=== PATIENT | male | born 1975 | race Caucasian/White ===

== ENCOUNTER 2019-03-12 11:25 | Inpatient (IN) | payer OTHER ==
[~2019-03-12] VITALS: Ht 177.8 cm; Wt 118.0 kg
[2019-03-12] VITALS (8 sets, daily range): BP systolic 101–138; BP diastolic 59–85
--- NOTE | ~2019-03-12 | EKG ---
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
--- NOTE | ~2019-03-12 | EKG ---
[place], [place] ELECTROCARDIOGRAM REPORT NAME: LEXI VALLADARES UNIT #: [id number] ROOM: 508 DOCTOR: IVELISSE DRAFT REPORT BIRTHDATE: [birth year] 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
--- NOTE | ~2019-03-12 | EKG ---
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
--- NOTE | ~2019-03-12 | EKG ---
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
[~2019-03-12 11:25] MED LIST: CIPROFLOXACIN500 MG PO; COMPAZINE10 MG PO; FLAGYL500 MG PO; MOTRIN800 MG PO; ZANTAC150 MG PO
[2019-03-12 12:10] LABS: BASO # 0.1 10*3/uL (0.0-0.1); BASO % 1.2 % (0.0-1.0); EOS # 0.2 10*3/uL (0.0-0.4); EOS % 1.7 % (1.0-4.0); HEMATOCRIT 45.8 % (42.0-52.0); HEMOGLOBIN 16.3 g/dl (14.0-18.0); LYMPH % 19.2 % (27.0-41.0); MEAN CELL VOLUME 93.1 fl (80.0-94.0); MEAN CORPUSCULAR HGB 33.1 pg (27.0-31.0); MEAN CORPUSCULAR HGB CONC 35.6 g/dl (33.0-37.0); MEAN PLATELET VOLUME 10.1 fl (9.6-12.3); MONO # 0.5 10*3/uL (0.1-1.0); MONO % 4.9 % (3.0-9.0); NEUT # 7.4 10*3/uL (2.3-7.9); NEUT % 72.3 % (47.0-73.0); PLATELET COUNT AUTOMATED 274 10*3/uL (130-400); RED BLOOD COUNT 4.92 10*6/uL (4.50-5.90); RED CELL DISTRI WIDTH 12.7 % (0-14.5); WHITE BLOOD COUNT 10.2 10*3/uL (4.8-10.8)
[2019-03-12 12:28] LABS: ALBUMIN 3.6 gm/dl (3.1-4.5); ALKALINE PHOSPHATASE 96 U/L (45-117); BUN 7 mg/dl (7-24); CHLORIDE 107 mmol/L (98-107); CREATININE 0.98 mg/dL (0.70-1.30); POTASSIUM 3.7 mmol/L (3.5-5.1); SGOT/AST 30 IU/L (3-35); SGPT/ALT 54 U/L (12-78); SODIUM 139 mmol/L (136-145); TOTAL PROTEIN 7.1 gm/dL (6.4-8.2)
[2019-03-12 12:29] LABS: TROPONIN I < 0.015 ng/ml (<0.045)
[2019-03-12 12:31] LABS: INTERNATIONAL NORM RATIO 0.9 (2.0-3.5)
[2019-03-12] MEDS ORDERED: LISINOPRIL30 MG PO (12:32)
[2019-03-12] MEDS ORDERED: CYMBALTA60 MG PO (12:33)
--- NOTE | 2019-03-12 13:20 | NUR ---
A 44, admitted to , under the services of RUTH Waddell DO with a diagnosis of CHEST PAIN. Chief complaint is CHEST PAIN. Patient arrived via stretcher from ER. Monitor applied. Initial assessment completed. Vital signs taken and recorded. RUTH WADDELL DO notified of admission to the unit. Orders received. See assessment for past medical history, medications and allergies. Patient and/or family oriented to unit. [facility] visitation policy reviewed. Clothing/patient valuable form completed. RASHEED MIRANDA
--- NOTE | 2019-03-12 14:18 | NUR ---
dr shepard office notified of consult
--- NOTE | 2019-03-12 19:04 | NUR ---
CONTINED ELEVATED TRO LEVEL SENT TO DR MYLES
--- NOTE | 2019-03-12 20:00 | NUR ---
RESTING IN BED. DENIES PAIN OR DISCOMFORT AT THIS TIME. WILL CONTINUE TO MONITOR. CALL LIGHT WITHIN REACH.
[2019-03-13] VITALS: BP 130/88
--- NOTE | 2019-03-13 | NUR ---
VOICES NO C/O AT THIS TIME. REINFORCED NPO STATUS AT THIS TIME. CALL LIGHT WITHIN REACH.
--- NOTE | 2019-03-13 05:30 | NUR ---
AROUSES EASILY FOR MEDICATION. ALSO DID ORTHOSTATICS AT THIS TIME; SEE VITAL SIGNS. PT. IS NOT SYMPTOMATIC. DOES NOT C/O ANY DIZZINESS NOR CHEST PAIN AT THIS TIME. CALL LIGHT WITHIN REACH.
--- NOTE | 2019-03-13 06:00 | NUR ---
GETTING BATHED FOR STRESS TEST.
--- NOTE | 2019-03-13 06:30 | NUR ---
CALLED DR. MANZANO WITH PT'S BLOOD PRESSURE. PT'S HOME MEDICATIONS HAVE NOT BEEN REORDERED. DR. MANZANO IS GOING TO REVIEW PT'S HOME MEDICATIONS.
[2019-03-13 06:56] LABS: BASO # 0.2 10*3/uL (0.0-0.1); BASO % 1.7 % (0.0-1.0); EOS # 0.3 10*3/uL (0.0-0.4); EOS % 3.8 % (1.0-4.0); HEMATOCRIT 47.1 % (42.0-52.0); HEMOGLOBIN 15.9 g/dl (14.0-18.0); LYMPH # 2.3 10*3/uL (1.3-4.4); LYMPH % 25.4 % (27.0-41.0); MEAN CORPUSCULAR HGB 32.1 pg (27.0-31.0); MEAN CORPUSCULAR HGB CONC 33.8 g/dl (33.0-37.0); MEAN PLATELET VOLUME 10.2 fl (9.6-12.3); MONO # 0.7 10*3/uL (0.1-1.0); MONO % 7.4 % (3.0-9.0); NEUT # 5.5 10*3/uL (2.3-7.9); PLATELET COUNT AUTOMATED 286 10*3/uL (130-400); RED BLOOD COUNT 4.96 10*6/uL (4.50-5.90); RED CELL DISTRI WIDTH 12.6 % (0-14.5)
[2019-03-13 07:31] LABS: BUN 10 mg/dl (7-24)
[2019-03-13 07:51] LABS: VITAMIN D, 25-HYDROXY 13.4 ng/mL (30-100)
[2019-03-13 07:56] LABS: ALBUMIN 3.7 gm/dl (3.1-4.5); ALKALINE PHOSPHATASE 99 U/L (45-117); CHLORIDE 103 mmol/L (98-107); CREATININE 0.95 mg/dL (0.70-1.30); PHOSPHOROUS 3.3 mg/dL (2.5-4.9); POTASSIUM 3.3 mmol/L (3.5-5.1); SGOT/AST 24 IU/L (3-35); SGPT/ALT 52 U/L (12-78); SODIUM 138 mmol/L (136-145); TOTAL PROTEIN 7.4 gm/dL (6.4-8.2); TRIGLYCERIDES 325 mg/dl (<150); VLDL CHOLESTEROL 65 mg/dL (6-40)
[2019-03-13 07:57] LABS: CHOLESTEROL 197 mg/dL (<200); FREE T4 0.75 ng/dl (0.76-1.46); HDL CHOLESTEROL 28 mg/dl (40-60); LDL CHOLESTEROL 104 mg/dL (9-159)
--- NOTE | 2019-03-13 11:11 | NUR ---
Clinic Office Coordinator in to talk to patient. Patient states lives at HOME with AND KIDS. There are FEW steps in the home. Physician: CAITIE [facility] Home health services: NONE Patient's level of ADLs: INDEPENDENT Patient has working utilities: YES DME: NONE Follow-up physician's appointment after d/c: WILL BE MADE BY HOSPITALIST NURSE DIRECTOR ON DISCHARGE. Does patient want to access PORTAL?: NO Discharge plan PT PLANS TO RETURN HOME ON DISCHARGE AND WILL HAVE NO NEEDS.. WILL CONTINUE TO FOLLOW. WILL HAVE A RIDE HOME PER PT. BRITTANY MENG
[2019-03-13 11:56] VITALS: BP 139/95
--- NOTE | 2019-03-13 13:17 | NUR ---
PT RESTING IN BED, THIS AM, DR. MORSE REQUESTED TRANSFER TO [facility] FOR HEART CATH. PT AGREED AND SIGNED ALL PAPER WORK.
--- NOTE | 2019-03-13 13:21 | NUR ---
EMT YIFANAR HERE TO MUTUEL TELLER PT WITH ALL BELONGINGS AND PAPERWORK GIVEN. REPORT GIVEN TO EMT'S . PT AT SIDE WILL FOLLOW AMBULANCE UP.
--- NOTE | 2019-03-13 13:35 | NUR ---
PT OFF UNIT AT THIS TIME.
== END 2019-03-13 13:30 | disposition other institution (70) | DRG 282 ==
LOC: ED 11:25 → EDHOLD 12:35 → 5E 12:35
PROVIDERS: Nurse Practitioner Family; Student in an Organized Health Care Education/Training Program; ADMIT Internal Medicine
DX: I21.4 Non-ST elevation (NSTEMI) myocardial infarction (principal); R55 Syncope and collapse; I20.8 Other forms of angina pectoris; I44.7 Left bundle-branch block, unspecified; Z90.49 Acquired absence of other specified parts of digestive tract; R73.9 Hyperglycemia, unspecified; K52.9 Noninfective gastroenteritis and colitis, unspecified; F41.9 Anxiety disorder, unspecified; F32.9 Major depressive disorder, single episode, unspecified; I10 Essential (primary) hypertension; K59.09 Other constipation; Z79.899 Other long term (current) drug therapy; Z82.49 Family history of ischemic heart disease and other diseases of the circulatory system

== ENCOUNTER 2019-07-19 15:33 | Emergency (ER) | payer OTHER ==
[~2019-07-19] VITALS: Ht 177.8 cm; Wt 117.9 kg
--- NOTE | ~2019-07-19 | EKG ---
[place], [place] ELECTROCARDIOGRAM REPORT NAME: LEXI VALLADARES UNIT #: [id number] ROOM: DOCTOR: EPIPHANY DRAFT REPORT BIRTHDATE: [address] 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
[~2019-07-19 15:33] MED LIST changes: +CYMBALTA60 MG PO; +LISINOPRIL30 MG PO
[2019-07-19 16:42] LABS: BASO # 0.1 10*3/uL (0.0-0.1); BASO % 1.1 % (0.0-1.0); EOS # 0.1 10*3/uL (0.0-0.4); EOS % 0.7 % (1.0-4.0); HEMATOCRIT 41.7 % (42.0-52.0); LYMPH # 1.6 10*3/uL (1.3-4.4); LYMPH % 16.9 % (27.0-41.0); MEAN CELL VOLUME 93.7 fl (80.0-94.0); MEAN CORPUSCULAR HGB 33.7 pg (27.0-31.0); MEAN PLATELET VOLUME 10.5 fl (9.6-12.3); MONO # 0.7 10*3/uL (0.1-1.0); MONO % 7.2 % (3.0-9.0); NEUT # 6.9 10*3/uL (2.3-7.9); NEUT % 73.4 % (47.0-73.0); PLATELET COUNT AUTOMATED 278 10*3/uL (130-400); RED BLOOD COUNT 4.45 10*6/uL (4.50-5.90); RED CELL DISTRI WIDTH 12.4 % (0-14.5); WHITE BLOOD COUNT 9.4 10*3/uL (4.8-10.8)
[2019-07-19 16:53] LABS: BUN 10 mg/dl (7-24); CHLORIDE 105 mmol/L (98-107); CREATININE 0.83 mg/dL (0.70-1.30); POTASSIUM 4.2 mmol/L (3.5-5.1); SODIUM 138 mmol/L (136-145)
[2019-07-19 18:41] VITALS: BP 150/106
[2019-07-19] MEDS ORDERED: AUGMENTIN 875875 MG PO (18:52)
== END 2019-07-19 19:15 | disposition home or self-care (01) ==
LOC: ED 15:33
PROVIDERS: Nurse Practitioner
DX: J32.1 Chronic frontal sinusitis (principal); R05 Cough; Z79.899 Other long term (current) drug therapy

== ENCOUNTER 2019-07-24 13:53 | Emergency (ER) | payer OTHER ==
[~2019-07-24] VITALS: Ht 180.3 cm; Wt 116.6 kg
[~2019-07-24 13:53] MED LIST changes: +AUGMENTIN 875875 MG PO
[2019-07-24 14:32] LABS: BASO # 0.1 10*3/uL (0.0-0.1); BASO % 1.1 % (0.0-1.0); EOS # 0.1 10*3/uL (0.0-0.4); EOS % 0.6 % (1.0-4.0); HEMATOCRIT 45.4 % (42.0-52.0); HEMOGLOBIN 16.2 g/dl (14.0-18.0); LYMPH # 1.7 10*3/uL (1.3-4.4); LYMPH % 17.2 % (27.0-41.0); MEAN CELL VOLUME 91.9 fl (80.0-94.0); MEAN CORPUSCULAR HGB 32.8 pg (27.0-31.0); MEAN CORPUSCULAR HGB CONC 35.7 g/dl (33.0-37.0); MONO # 0.7 10*3/uL (0.1-1.0); MONO % 6.7 % (3.0-9.0); NEUT # 7.2 10*3/uL (2.3-7.9); NEUT % 73.9 % (47.0-73.0); PLATELET COUNT AUTOMATED 350 10*3/uL (130-400); RED BLOOD COUNT 4.94 10*6/uL (4.50-5.90); RED CELL DISTRI WIDTH 12.3 % (0-14.5); WHITE BLOOD COUNT 9.8 10*3/uL (4.8-10.8)
[2019-07-24 14:46] LABS: ALBUMIN 4.1 gm/dl (3.1-4.5); ALKALINE PHOSPHATASE 101 U/L (45-117); BUN 9 mg/dl (7-24); CHLORIDE 104 mmol/L (98-107); CREATININE 0.89 mg/dL (0.70-1.30); POTASSIUM 4.1 mmol/L (3.5-5.1); SGOT/AST 72 IU/L (3-35); SGPT/ALT 79 U/L (12-78); SODIUM 135 mmol/L (136-145); TOTAL PROTEIN 8.1 gm/dL (6.4-8.2)
[2019-07-24 14:48] LABS: ETHYL ALCOHOL < 3.0 mg/dl (<3)
[2019-07-24 16:15] LABS: URINE AMPHETAMINES < 1000 (1000ng/ml); URINE BARBITURATES < 200 (200ng/ml); URINE BENZODIAZEPINES < 200 (200ng/ml); URINE CANNABINOIDS (THC) < 50 (50ng/ml); URINE COCAINE < 300 (300ng/ml); URINE METHADONE < 300 (300ng/ml); URINE OPIATES < 300 (300ng/ml); URINE PHENCYCLIDINE < 25 (25ng/ml)
[2019-07-24 20:46] VITALS: BP 174/101
== END 2019-07-24 22:40 | disposition home health service (06) ==
LOC: ED 13:53
PROVIDERS: Emergency Medicine
DX: F33.9 Major depressive disorder, recurrent, unspecified (principal); F41.9 Anxiety disorder, unspecified; I10 Essential (primary) hypertension; Z79.899 Other long term (current) drug therapy; Z90.49 Acquired absence of other specified parts of digestive tract

== ENCOUNTER 2019-10-22 10:22 | Emergency (ER) | payer OTHER ==
[~2019-10-22] VITALS: Ht 177.8 cm; Wt 118.4 kg
[2019-10-22 10:23] VITALS: BP 157/80
[2019-10-22] MEDS ORDERED: CARAFATE1 G1 PO (10:36)
[2019-10-22] MEDS ORDERED: OLANZAPINE10 MG PO (10:36)
[2019-10-22] MEDS ORDERED: NEURONTIN300 MG PO (10:37)
[2019-10-22] MEDS ORDERED: SIMVASTATIN10 MG PO (10:37)
[2019-10-22] MEDS ORDERED: HYDROXYZINE PAM50 MG PO (10:38)
[2019-10-22 10:45] LABS: BASO # 0.1 10*3/uL (0.0-0.1); BASO % 0.9 % (0.0-1.0); EOS # 0.1 10*3/uL (0.0-0.4); EOS % 0.7 % (1.0-4.0); HEMATOCRIT 46.1 % (42.0-52.0); LYMPH # 1.6 10*3/uL (1.3-4.4); LYMPH % 16.2 % (27.0-41.0); MEAN CELL VOLUME 92.8 fl (80.0-94.0); MEAN CORPUSCULAR HGB 32.2 pg (27.0-31.0); MEAN CORPUSCULAR HGB CONC 34.7 g/dl (33.0-37.0); MEAN PLATELET VOLUME 9.6 fl (9.6-12.3); MONO # 0.5 10*3/uL (0.1-1.0); MONO % 5.1 % (3.0-9.0); NEUT # 7.3 10*3/uL (2.3-7.9); NEUT % 76.4 % (47.0-73.0); PLATELET COUNT AUTOMATED 291 10*3/uL (130-400); RED BLOOD COUNT 4.97 10*6/uL (4.50-5.90); RED CELL DISTRI WIDTH 12.4 % (0-14.5); WHITE BLOOD COUNT 9.6 10*3/uL (4.8-10.8)
[2019-10-22 11:02] LABS: ALBUMIN 3.9 gm/dl (3.1-4.5); ALKALINE PHOSPHATASE 85 U/L (45-117); BUN 11 mg/dl (7-24); CHLORIDE 107 mmol/L (98-107); CREATININE 0.98 mg/dL (0.70-1.30); SGOT/AST 31 IU/L (3-35); SODIUM 140 mmol/L (136-145); TOTAL PROTEIN 7.4 gm/dL (6.4-8.2)
[2019-10-22 11:04] LABS: ACETAMINOPHEN (TYLENOL) < 5.0 ug/ml (10-30); ETHYL ALCOHOL < 3.0 mg/dl (<3); SGPT/ALT 69 U/L (12-78)
[2019-10-22 12:34] LABS: BILIRUBIN NEGATIVE (NEGATIVE); BLOOD NEGATIVE (NEGATIVE); CLARITY SL CLOUDY (CLEAR); COLOR YELLOW (YELLOW); GLUCOSE NEGATIVE (NEGATIVE); KETONE NEGATIVE (NEGATIVE); LEUKO ESTERASE NEGATIVE (NEGATIVE); NITRITE NEGATIVE (NEGATIVE); SPECIFIC GRAVITY <= 1.005 (1.005-1.030); UROBILINOGEN 0.2 E.U./dl (0.2-1.0)
[2019-10-22 12:42] LABS: URINE AMPHETAMINES < 1000 (1000ng/ml); URINE BARBITURATES < 200 (200ng/ml); URINE BENZODIAZEPINES < 200 (200ng/ml); URINE CANNABINOIDS (THC) < 50 (50ng/ml); URINE COCAINE < 300 (300ng/ml); URINE METHADONE < 300 (300ng/ml); URINE OPIATES < 300 (300ng/ml); URINE PHENCYCLIDINE < 25 (25ng/ml)
[2019-10-22 12:47] LABS: MUCOUS TRACE; RBC 0-2 rbc/hpf (0-2)
[2019-11-05] MEDS ORDERED: OMEPRAZOLE40 MG PO (17:48)
[2019-11-05] MEDS ORDERED: HYDROCHLOROTH12.5 M3 PO (17:48)
== END 2019-10-22 16:09 | disposition home or self-care (01) ==
LOC: ED 10:22
PROVIDERS: Emergency Medicine
DX: F32.9 Major depressive disorder, single episode, unspecified (principal); I10 Essential (primary) hypertension; J45.909 Unspecified asthma, uncomplicated; Z79.899 Other long term (current) drug therapy

== ENCOUNTER → 2019-10-30 | Outpatient (CLI) | payer OTHER ==
[~2019-10-30] MED LIST changes: +CARAFATE1 G1 PO; +HYDROXYZINE PAM50 MG PO; +NEURONTIN300 MG PO; +OLANZAPINE10 MG PO; +SIMVASTATIN10 MG PO
== END | disposition home or self-care (01) ==
LOC: RAD 15:20
DX: M54.5 Low back pain (principal)

== ENCOUNTER → 2019-11-06 | Outpatient (CLI) | payer OTHER ==
[~2019-11-06] MED LIST changes: +DOXEPIN50 MG PO; +HYDROCHLOROTH12.5 M3 PO; +LORATADINE10 M3 PO; +METOPROLOL SUCC25 M2 PO; +MIRTAZAPINE30 M2 PO; +OMEPRAZOLE40 MG PO; +ROPINIROLE HYD0.5 MG PO; +TRINTELLIX10 MG PO
== END | disposition home or self-care (01) ==
LOC: LAB 09:42
DX: R53.83 Other fatigue (principal)

== ENCOUNTER → 2019-11-09 | Day surgery (SDC) | payer OTHER ==
[~2019-11-09] VITALS: Ht 177.8 cm; Wt 116.1 kg
[~2019-11-09] MED LIST changes: +ATARAX,VISTARIL50 MG PO; +HYDRALAZINE HYD50 MG PO; +HYDROXYZINE HCL25 MG PO; +REMERON15 M2 PO
[2019-11-09 13:46] VITALS: BP 157/106
[2019-11-09 15:02] VITALS: BP 116/74
[2019-11-09 15:17] VITALS: BP 121/83
[2019-11-09 15:28] VITALS: BP 128/89
== END | disposition home or self-care (01) ==
LOC: SDC 11-06 08:45
DX: K62.5 Hemorrhage of anus and rectum (principal); K29.50 Unspecified chronic gastritis without bleeding; I10 Essential (primary) hypertension; K21.9 Gastro-esophageal reflux disease without esophagitis; J45.909 Unspecified asthma, uncomplicated; K44.9 Diaphragmatic hernia without obstruction or gangrene; F41.9 Anxiety disorder, unspecified; F32.9 Major depressive disorder, single episode, unspecified; E66.9 Obesity, unspecified; Z68.36 Body mass index [BMI] 36.0-36.9, adult; Z98.890 Other specified postprocedural states; Z79.899 Other long term (current) drug therapy

== ENCOUNTER 2019-11-11 11:17 | Inpatient (IN) | payer OTHER ==
[~2019-11-11] VITALS: Ht 177.8 cm; Wt 117.6 kg
[~2019-11-11 11:17] MED LIST changes: -ATARAX,VISTARIL50 MG PO; -DOXEPIN50 MG PO; -HYDRALAZINE HYD50 MG PO; -HYDROXYZINE HCL25 MG PO; -LORATADINE10 M3 PO; -METOPROLOL SUCC25 M2 PO; -MIRTAZAPINE30 M2 PO; -REMERON15 M2 PO; -ROPINIROLE HYD0.5 MG PO; -TRINTELLIX10 MG PO
[2019-11-11 11:18] VITALS: BP 158/100
[2019-11-11 11:45] LABS: BASO # 0.1 10*3/uL (0.0-0.1); EOS # 0.1 10*3/uL (0.0-0.4); EOS % 1.2 % (1.0-4.0); HEMATOCRIT 44.1 % (42.0-52.0); HEMOGLOBIN 15.6 g/dl (14.0-18.0); LYMPH # 1.3 10*3/uL (1.3-4.4); LYMPH % 17.1 % (27.0-41.0); MEAN CELL VOLUME 90.9 fl (80.0-94.0); MEAN CORPUSCULAR HGB 32.2 pg (27.0-31.0); MEAN CORPUSCULAR HGB CONC 35.4 g/dl (33.0-37.0); MEAN PLATELET VOLUME 9.8 fl (9.6-12.3); MONO # 0.5 10*3/uL (0.1-1.0); MONO % 6.1 % (3.0-9.0); NEUT # 5.7 10*3/uL (2.3-7.9); NEUT % 74.2 % (47.0-73.0); PLATELET COUNT AUTOMATED 217 10*3/uL (130-400); RED BLOOD COUNT 4.85 10*6/uL (4.50-5.90); RED CELL DISTRI WIDTH 12.3 % (0-14.5); WHITE BLOOD COUNT 7.7 10*3/uL (4.8-10.8)
[2019-11-11 12:02] LABS: ACT PARTIAL THROMBO TIME 27.9 SECONDS (20.0-32.1); INTERNATIONAL NORM RATIO 0.9 (2.0-3.5)
[2019-11-11 12:05] LABS: ALBUMIN 3.5 gm/dl (3.1-4.5); ALKALINE PHOSPHATASE 84 U/L (45-117); BUN 6 mg/dl (7-24); CHLORIDE 112 mmol/L (98-107); CREATININE 0.92 mg/dL (0.70-1.30); POTASSIUM 3.7 mmol/L (3.5-5.1); SGOT/AST 22 IU/L (3-35); SGPT/ALT 58 U/L (12-78); SODIUM 142 mmol/L (136-145); TOTAL PROTEIN 6.8 gm/dL (6.4-8.2)
[2019-11-11 12:06] LABS: TROPONIN I < 0.015 ng/ml (<0.045)
[2019-11-11 12:23] VITALS: BP 149/95
--- NOTE | 2019-11-11 12:37 | NUR ---
PT ADMITS TO CHEST PAIN EARLIER THIS MORNING THAT CAME AND WENT. DENIES CHEST PAIN NOW.
[2019-11-11 13:53] VITALS: BP 140/102
[2019-11-11 14:12] VITALS: BP 159/99
--- NOTE | 2019-11-11 14:12 | NUR ---
A 44, admitted to , under the services of SHADY Menchaca MD with a diagnosis of CHEST PAIN WITH LOW RISK. Chief complaint is DIZZINESS, FALL IN SHOWER, LEFT SIDED CHEST PAIN. Patient arrived via ambulatory from ER. Monitor applied. Initial assessment completed. Vital signs taken and recorded. SHADY MENCHACA MD notified of admission to the unit. Orders received. See assessment for past medical history, medications and allergies. Patient and/or family oriented to unit. [facility] visitation policy reviewed. Clothing/patient valuable form completed. LIZY LEE
--- NOTE | 2019-11-11 14:51 | NUR ---
PT TRIGGERED HIGH RISK IN SUCIDAL ASSESSMENT SCREENING, TO HAVE 1:1 OBSERVATION UNTIL CLEARED BY PSYCH. CALL PLACED TO NURSING WEALTH MANAGEMENT DIRECTOR AND ETTA VÁZQUEZ. ETTA STATES SHE WILL BE IN LATER TO SEE PT.
--- NOTE | 2019-11-11 14:52 | NUR ---
PT IN DIRECT LINE OF SIGHT OF NURSE, NURSE IN PT'S DOORWAY.
[2019-11-11] MEDS ORDERED: LORATADINE10 M3 PO (14:55)
[2019-11-11] MEDS ORDERED: ROPINIROLE HYD0.5 MG PO (14:55)
[2019-11-11] MEDS ORDERED: MIRTAZAPINE30 M2 PO (14:55)
[2019-11-11] MEDS ORDERED: TRINTELLIX10 MG PO (14:56)
[2019-11-11] MEDS ORDERED: DOXEPIN50 MG PO (14:56)
--- NOTE | 2019-11-11 15:16 | NUR ---
PT MOVED TO ROOM 428 FOR PRIVACY, WITH 1:1 OBSERVATION MAINTAINED.
--- NOTE | 2019-11-11 15:32 | NUR ---
DR FUNEZ MADE AWARE OF NEW CONSULT. ORDER RECEIVED FOR ORTHO QSHIFT X3.
[2019-11-11 16:00] VITALS: BP 140/92
--- NOTE | 2019-11-11 18:09 | NUR ---
ETTA JOYA HERE AT THIS TIME, STATES PT IS AT NO RISK OF HARMING HIMSELF AT THIS TIME AND STATES 1:1 OBSERVATION IS NOT NECESSARY.
--- NOTE | 2019-11-11 18:10 | NUR ---
psychiatric assessment: client is known to me, he has been seen by myself several times in the er and i am familiar with his daugter and . they have been going through some marital stress due to finances, he has not been working and his quit her job because she couldnt handle her nursing school and work, he said that they are close to getting done with it but that she still has a semester to go , he said today she wanted to go for the day to her sisters and he didnt want her to go because he didnt want to deal with the kids, but he said that is not why he fell in the shower. he said that he feels that his suicidal ideation comes from that and he also said that he cant sleep. client said the sleep is the biggest issue. he denies any suicidal ideation now and said that he would never harm himself here, he denies having any plan. this client is not a suicide risk, he does not need a one to one, he does follow oupatient and he is aware of resources for inpatient if needed. client was advised to let the staff here know if he has any returning thoughts od suicide and we can help him, he agrees with that plan. discussed with his nurse.
[2019-11-11 20:00] VITALS: BP 155/102
[2019-11-11 20:20] LABS: BILIRUBIN NEGATIVE (NEGATIVE); BLOOD NEGATIVE (NEGATIVE); CLARITY CLEAR (CLEAR); COLOR YELLOW (YELLOW); GLUCOSE 1+ (NEGATIVE); KETONE NEGATIVE (NEGATIVE); LEUKO ESTERASE NEGATIVE (NEGATIVE); NITRITE NEGATIVE (NEGATIVE); SPECIFIC GRAVITY 1.025 (1.005-1.030); UROBILINOGEN 0.2 E.U./dl (0.2-1.0)
[2019-11-11 20:32] LABS: MUCOUS 2+; WBC 0-2 wbc/hpf (0-5)
[2019-11-12] VITALS: BP 143/97
--- NOTE | 2019-11-12 01:43 | NUR ---
PT SLEEPING; NO S/S DISTRESS. CALL LIGHT IN REACH.
[2019-11-12 08:00] VITALS: BP 151/96
[2019-11-12] MEDS ORDERED: METOPROLOL SUCC25 M2 PO (08:51)
--- NOTE | 2019-11-12 09:00 | NUR ---
Printed Circuit Board Preassembler in to talk to patient. Patient states lives at home with his and children. There are 15 steps in the home. Physician: Dr. Jose Painter [facility]acy: [facility] Home health services: none Patient's level of ADLs: INDEPENDENT Patient has working utilities: yes DME: none Follow-up physician's appointment after d/c: he prefers to make his own follow up appt after discharge Does patient want to access PORTAL?: no Discharge plan discussed with patient. He lives at home with his and children. He is independent in his ADLs and ambulation. Discussed home health care services and he denies any home needs at this time. When medically stable he will be discharged to home. His father will provide transportation on discharge. GABINO ROA
[2019-11-12 12:00] VITALS: BP 143/101
--- NOTE | 2019-11-12 15:30 | NUR ---
SPOKE TO DR PATEL AND SHE STATED SHE SPOKE TO DR العلي REGARDING MEDS AFTER SEEING PATIENT AND SPEAKING TO DR BOOTHE. THEN SPOKE TO DR العلي REGARDING THE TREATMENT PLAN AND MEDS.
[2019-11-12 16:00] VITALS: BP 141/100
[2019-11-12] MEDS ORDERED: REMERON15 M2 PO (16:00)
[2019-11-12] MEDS ORDERED: HYDROXYZINE HCL25 MG PO (16:01)
[2019-11-12] MEDS ORDERED: HYDRALAZINE HYD50 MG PO (16:03)
[2019-11-12] MEDS ORDERED: ATARAX,VISTARIL50 MG PO (16:07)
--- NOTE | 2019-11-12 16:50 | NUR ---
DR. العلي MADE AWARE THAT PATIENT NOT WANTING TO GO HOME. PT STATES DIZZINESS AND INABILITY TO SLEEP AT NIGHT. DR. العلي IS DEFERRING THE SLEEP PROBLEM TO PSYCHIATRY, PSYCHIARY OLINDA PATEL WAS MADE AWARE THAT PATIENT CONCERNED WITH HOME MEDICATIONS ORDERED, OLINDA PATEL STATED THAT PER DR. BOOTHE, PT IS TO REMAIN ON THE CURRENT ORDERED MEDICATIONS AND FOLLOW UP WITH SURINDER HANLEY SCHEDULED IN [address] العلي MADE AWARE OF ELEVATED BLOOD PRESSURE OF 140/100, ORDERED DOSE OF METOPROLOL TO BE GIVEN NOW. ORDERS PLACED.
--- NOTE | 2019-11-12 17:31 | NUR ---
PT GIVEN ONE TIME DOSE OF METOPROLOL, PT UNDERSTANDS FEELS PATIENT CAN BE DISCHARGED HOME. OFFERED TO HAVE NURSING OCEANOLOGY TEACHER COME TALK TO PATIENT, PATIENT DECLINED. STATES HE WILL NOT REFUSE TO BE DISCHARGED. HOWEVER, WANTS TO WAIT TO SEE WHAT HIS BLOOD PRESSURE COMES DOWN TO.
[2019-11-12 18:03] VITALS: BP 138/96
--- NOTE | 2019-11-12 18:04 | NUR ---
PT AGREES TO BE DISCHARGED, UNDERSTANDS PLAN OF CARE. TELE D/C. IV D/C, DRESSING APPLIED. PT UNDERSTANDS MEDICATIONS, NO QUESTIONS ON DISHCARGE AT THIS TIME.
--- NOTE | 2019-11-12 18:17 | NUR ---
DR. العلي MADE AWARE OF BLOOD PRESSURE 138/96, INSTRUCT PATIENT TO CHANGE METOPROLOL DOSE TO 50MG DAILY. WILL WRITE OUT ORDER ON DISCHARGE INSTRUCTIONS FOR PATIENT. DR. العلي AWARE CAROTID DOPPLER RESULTS NOT BACK AT THIS TIME, OKAY TO DISCHARGE PATIENT HOME PRIOR TO RESULTS RECEIVED.
--- NOTE | 2019-11-12 18:33 | NUR ---
PT UNDERSTANDS CHANGE IN METOPROLOL DOSE, CHANGE IN DOSE CALLED TO [facility]. PT WAITINT FOR RIDE.
--- NOTE | 2019-11-12 20:05 | NUR ---
Discharge instructions reviewed with patient/family. Patient receptive and verbalizes understanding. Follow-up care arranged. Written instructions given to patient/family. WARD LYNCH
== END 2019-11-12 20:24 | disposition home or self-care (01) | DRG 198 ==
LOC: ED 11:17 → 4E 13:09
PROVIDERS: Emergency Medicine; ADMIT Internal Medicine
DX: R07.89 Other chest pain (principal); I25.10 Atherosclerotic heart disease of native coronary artery without angina pectoris; F41.9 Anxiety disorder, unspecified; S19.9XXA Unspecified injury of neck, initial encounter; X58.XXXA Exposure to other specified factors, initial encounter; S06.0X0A Concussion without loss of consciousness, initial encounter; E78.5 Hyperlipidemia, unspecified; I10 Essential (primary) hypertension; E66.9 Obesity, unspecified; W18.2XXA Fall in (into) shower or empty bathtub, initial encounter; F33.2 Major depressive disorder, recurrent severe without psychotic features; Y92.89 Other specified places as the place of occurrence of the external cause; Y93.89 Activity, other specified; Y99.8 Other external cause status; Z90.49 Acquired absence of other specified parts of digestive tract; Z68.37 Body mass index [BMI] 37.0-37.9, adult; Z81.8 Family history of other mental and behavioral disorders; Z82.49 Family history of ischemic heart disease and other diseases of the circulatory system; Z88.1 Allergy status to other antibiotic agents; Z88.8 Allergy status to other drugs, medicaments and biological substances

== ENCOUNTER → 2020-01-10 | Outpatient (CLI) | payer OTHER ==
[~2020-01-10] MED LIST changes: +ATARAX,VISTARIL50 MG PO; +DOXEPIN50 MG PO; +HYDRALAZINE HYD50 MG PO; +HYDROXYZINE HCL25 MG PO; +LORATADINE10 M3 PO; +METOPROLOL SUCC25 M2 PO; +MIRTAZAPINE30 M2 PO; +REMERON15 M2 PO; +ROPINIROLE HYD0.5 MG PO; +TRINTELLIX10 MG PO
== END ==
LOC: CT 13:00
DX: K42.9 Umbilical hernia without obstruction or gangrene (principal); K76.0 Fatty (change of) liver, not elsewhere classified; N13.9 Obstructive and reflux uropathy, unspecified; R10.9 Unspecified abdominal pain; Z90.49 Acquired absence of other specified parts of digestive tract

== ENCOUNTER → 2020-03-17 | Outpatient (CLI) | payer OTHER ==
[2020-03-18 14:05] LABS: t-TRANSGLUTAMINASE (tTG) IGA <2 U/mL (0-3); t-TRANSGLUTAMINASE (tTG) IgG 4 U/mL (0-5)
== END ==
LOC: LAB 13:49
PROVIDERS: Internal Medicine Gastroenterology
DX: R19.7 Diarrhea, unspecified (principal)

== ENCOUNTER → 2020-04-07 | Outpatient (CLI) | payer OTHER | END | disposition home or self-care (01) | LOC: RAD 11:00 | DX: R10.84 Generalized abdominal pain (principal); R19.4 Change in bowel habit; Z90.49 Acquired absence of other specified parts of digestive tract ==

== ENCOUNTER → 2020-12-03 | Outpatient (CLI) | payer OTHER ==
[2020-12-03 15:08] LABS: HEMATOCRIT 41.6 % (42.0-52.0); MEAN CELL VOLUME 90.4 fl (80.0-94.0); MEAN CORPUSCULAR HGB 30.9 pg (27.0-31.0); MEAN CORPUSCULAR HGB CONC 34.1 g/dl (33.0-37.0); MEAN PLATELET VOLUME 10.1 fl (9.6-12.3); RED BLOOD COUNT 4.6 10*6/uL (4.50-5.90); RED CELL DISTRI WIDTH 12.5 % (0-14.5); WHITE BLOOD COUNT 5.2 10*3/uL (4.8-10.8)
[2020-12-03 15:35] LABS: ALBUMIN 3.6 gm/dl (3.1-4.5); ALKALINE PHOSPHATASE 108 U/L (45-117); BUN 9 mg/dl (7-24); CHLORIDE 104 mmol/L (98-107); CHOLESTEROL 155 mg/dL (<200); CREATININE 0.94 mg/dL (0.70-1.30); HDL CHOLESTEROL 25 mg/dl (40-60); POTASSIUM 3.6 mmol/L (3.5-5.1); SGOT/AST 51 IU/L (3-35); SGPT/ALT 95 U/L (12-78); SODIUM 139 mmol/L (136-145); TOTAL PROTEIN 7.1 gm/dL (6.4-8.2); TRIGLYCERIDES 572 mg/dl (<150)
[2020-12-03 17:19] LABS: VITAMIN D, 25-HYDROXY 13.1 ng/mL (30-100)
== END | disposition home or self-care (01) ==
LOC: LAB 14:38
PROVIDERS: ATTEND Family Medicine
DX: M51.36 Other intervertebral disc degeneration, lumbar region (principal); M48.061 Spinal stenosis, lumbar region without neurogenic claudication; M25.78 Osteophyte, vertebrae; E55.9 Vitamin D deficiency, unspecified

== ENCOUNTER → 2020-12-09 | Outpatient (CLI) | payer OTHER | END | disposition home or self-care (01) | LOC: LAB 14:27 | PROVIDERS: ATTEND Family Medicine | DX: E11.9 Type 2 diabetes mellitus without complications (principal) ==

== ENCOUNTER 2021-02-18 14:12 | Emergency (ER) | payer OTHER ==
[~2021-02-18] VITALS: Ht 177.8 cm; Wt 124.3 kg
[2021-02-18 14:46] LABS: BASO # 0.1 10*3/uL (0.0-0.1); BASO % 1.6 % (0.0-1.0); EOS # 0.1 10*3/uL (0.0-0.4); EOS % 1.2 % (1.0-4.0); HEMATOCRIT 42.3 % (42.0-52.0); LYMPH # 1.3 10*3/uL (1.3-4.4); LYMPH % 24.8 % (27.0-41.0); MEAN CELL VOLUME 89.8 fl (80.0-94.0); MEAN CORPUSCULAR HGB 31.4 pg (27.0-31.0); MEAN PLATELET VOLUME 10.2 fl (9.6-12.3); MONO # 0.3 10*3/uL (0.1-1.0); MONO % 5.5 % (3.0-9.0); NEUT # 3.4 10*3/uL (2.3-7.9); NEUT % 65.9 % (47.0-73.0); PLATELET COUNT AUTOMATED 214 10*3/uL (130-400); RED BLOOD COUNT 4.71 10*6/uL (4.50-5.90); RED CELL DISTRI WIDTH 11.9 % (0-14.5); WHITE BLOOD COUNT 5.1 10*3/uL (4.8-10.8)
[2021-02-18 14:57] LABS: ACT PARTIAL THROMBO TIME 27.3 SECONDS (20.0-32.1)
[2021-02-18 15:51] LABS: BILIRUBIN Negative (Negative); BLOOD Negative (Negative); CLARITY Clear (Clear); COLOR Yellow (Yellow); GLUCOSE 3+ (Negative); KETONE 1+ (Negative); LEUKO ESTERASE Negative (Negative); NITRITE Negative (Negative); PH 5.5 (4.5-8.0); SPECIFIC GRAVITY >= 1.030 (1.001-1.030)
[2021-02-18 15:57] LABS: BACTERIA TRACE; EPITHELIAL CELLS 0-2; RBC 0-2 rbc/hpf (0-2); WBC 0-2 wbc/hpf (0-5)
[2021-02-18 15:59] LABS: URINE AMPHETAMINES < 1000 (1000ng/ml); URINE BARBITURATES < 200 (200ng/ml); URINE BENZODIAZEPINES < 200 (200ng/ml); URINE CANNABINOIDS (THC) < 50 (50ng/ml); URINE COCAINE < 300 (300ng/ml); URINE METHADONE < 300 (300ng/ml); URINE OPIATES < 300 (300ng/ml); URINE PHENCYCLIDINE < 25 (25ng/ml)
[2021-02-18 16:04] LABS: BUN 13 mg/dl (7-24); CHLORIDE 107 mmol/L (98-107); CREATININE 0.84 mg/dL (0.70-1.30); POTASSIUM 3.6 mmol/L (3.5-5.1); SODIUM 138 mmol/L (136-145)
[2021-02-18 16:42] VITALS: BP 140/89
== END 2021-02-18 17:28 | disposition home or self-care (01) ==
LOC: ED 14:12
PROVIDERS: Emergency Medicine
DX: R51.9 Headache, unspecified (principal); E11.65 Type 2 diabetes mellitus with hyperglycemia; F41.9 Anxiety disorder, unspecified; F32.9 Major depressive disorder, single episode, unspecified; I10 Essential (primary) hypertension; Z90.49 Acquired absence of other specified parts of digestive tract; Z98.890 Other specified postprocedural states; Z88.8 Allergy status to other drugs, medicaments and biological substances; Z79.899 Other long term (current) drug therapy

== ENCOUNTER → 2021-06-15 | Outpatient (CLI) | payer OTHER ==
[~2021-06-15] MED LIST changes: +BUSPAR15 MG PO; +DAYVIGO10 MG PO; +METFORMIN HYDR500 MG PO; +PAXIL10 MG PO; +RESTORIL15 MG PO; +TOPROL XL50 M1 PO; +VITAMIN D350 MCG PO; +XARE15TA PO
[2021-06-15 16:31] LABS: HEMATOCRIT 38.2 % (42.0-52.0); MEAN CELL VOLUME 89.9 fl (80.0-94.0); MEAN CORPUSCULAR HGB CONC 35.6 g/dl (33.0-37.0); MEAN PLATELET VOLUME 9.6 fl (9.6-12.3); RED BLOOD COUNT 4.25 10*6/uL (4.50-5.90); RED CELL DISTRI WIDTH 12.7 % (0-14.5); WHITE BLOOD COUNT 6.5 10*3/uL (4.8-10.8)
[2021-06-15 16:48] LABS: CHOLESTEROL 169 mg/dL (<200); LDL CHOLESTEROL 64 mg/dL (9-159); TRIGLYCERIDES 387 mg/dl (<150)
[2021-06-15 16:49] LABS: ALBUMIN 3.4 gm/dl (3.1-4.5); ALKALINE PHOSPHATASE 81 U/L (45-117); BUN 9 mg/dl (7-24); CHLORIDE 108 mmol/L (98-107); CREATININE 0.89 mg/dL (0.70-1.30); IRON 111 ug/dL (65-175); POTASSIUM 3.6 mmol/L (3.5-5.1); SGOT/AST 31 IU/L (3-35); SGPT/ALT 61 U/L (12-78); SODIUM 137 mmol/L (136-145); TOTAL IRON BINDING CAPACITY 291 ug/dl (250-450); TOTAL PROTEIN 6.7 gm/dL (6.4-8.2)
[2021-06-16 08:09] LABS: ALPHA-1-ANTITRYPSIN, SERUM 100 mg/dL (101-187)
[2021-06-16 10:08] LABS: HEP B CORE AB TOTAL Negative (Negative); HEPATITIS B SURFACE AB Non Reactive (.); HEPATITIS B SURFACE AG Negative (Negative)
[2021-06-16 13:07] LABS: ANTI-SMOOTH MUSCLE ANTIBODY 16 Units (0-19)
== END | disposition home or self-care (01) ==
LOC: LAB 15:57
PROVIDERS: Family Medicine; ATTEND Specialist
DX: E11.9 Type 2 diabetes mellitus without complications (principal); R94.5 Abnormal results of liver function studies; I10 Essential (primary) hypertension; Z11.59 Encounter for screening for other viral diseases

== ENCOUNTER 2021-08-04 09:30 | Emergency (ER) | payer OTHER ==
[~2021-08-04] VITALS: Wt 122.9 kg
[2021-08-04 09:36] VITALS: BP 145/90
== END 2021-08-04 13:51 | disposition home or self-care (01) ==
LOC: ED 09:30
DX: U07.1 COVID-19 (principal); Z88.1 Allergy status to other antibiotic agents; Z79.899 Other long term (current) drug therapy

== ENCOUNTER 2021-08-14 14:42 | Emergency (ER) | payer OTHER | END 2021-08-14 21:30 | disposition left against medical advice (07) | LOC: ED 14:42 | DX: R06.02 Shortness of breath (principal); Z53.21 Procedure and treatment not carried out due to patient leaving prior to being seen by health care provider ==

== ENCOUNTER → 2021-08-14 | Outpatient (CLI) | payer OTHER | END | disposition home or self-care (01) | LOC: RAD 14:57 | PROVIDERS: ATTEND Family Medicine | DX: U07.1 COVID-19 (principal); J84.9 Interstitial pulmonary disease, unspecified; R91.8 Other nonspecific abnormal finding of lung field ==

== ENCOUNTER → 2021-08-27 | Outpatient (CLI) | payer OTHER | END | disposition home or self-care (01) | LOC: RAD 12:22 | PROVIDERS: ATTEND Family Medicine | DX: U07.1 COVID-19 (principal) ==

== ENCOUNTER → 2021-10-26 | Outpatient (CLI) | payer OTHER | END | disposition home or self-care (01) | LOC: RAD 12:32 | PROVIDERS: ATTEND Family Medicine | DX: R06.02 Shortness of breath (principal); R05.9 Cough, unspecified ==

== ENCOUNTER → 2022-07-07 | Outpatient (CLI) | payer OTHER | END | disposition home or self-care (01) | LOC: LAB 12:34 | PROVIDERS: ATTEND Family Medicine | DX: N52.9 Male erectile dysfunction, unspecified (principal) ==

== ENCOUNTER → 2022-07-21 | Outpatient (CLI) | payer OTHER ==
[2022-07-21 10:07] LABS: HEMATOCRIT 43.9 % (42.0-52.0); MEAN CORPUSCULAR HGB 32.7 pg (27.0-31.0); MEAN CORPUSCULAR HGB CONC 35.5 g/dl (33.0-37.0); MEAN PLATELET VOLUME 9.9 fl (9.6-12.3); RED BLOOD COUNT 4.77 10*6/uL (4.50-5.90); RED CELL DISTRI WIDTH 13.3 % (0-14.5); WHITE BLOOD COUNT 7.5 10*3/uL (4.8-10.8)
[2022-07-21 10:24] LABS: ALKALINE PHOSPHATASE 80 U/L (45-117); BUN 11 mg/dl (7-24); CHLORIDE 107 mmol/L (98-107); CREATININE 0.93 mg/dL (0.70-1.30); POTASSIUM 3.8 mmol/L (3.5-5.1); SGOT/AST 27 IU/L (3-35); SGPT/ALT 55 U/L (12-78); SODIUM 139 mmol/L (136-145); TOTAL PROTEIN 7.2 gm/dL (6.4-8.2)
== END | disposition home or self-care (01) ==
LOC: LAB 09:34
PROVIDERS: ATTEND Family Medicine
DX: R06.02 Shortness of breath (principal); R06.09 Other forms of dyspnea; U09.9 Post COVID-19 condition, unspecified; Z79.01 Long term (current) use of anticoagulants

== ENCOUNTER 2022-08-12 10:26 | Emergency (ER) | payer OTHER ==
[~2022-08-12] VITALS: Wt 120.2 kg
[2022-08-12 12:41] VITALS: BP 140/98
[2022-08-12 12:56] LABS: BASO # 0.1 10*3/uL (0.0-0.1); BASO % 0.8 % (0.0-1.0); EOS # 0.1 10*3/uL (0.0-0.4); EOS % 0.8 % (1.0-4.0); HEMATOCRIT 42.9 % (42.0-52.0); LYMPH # 1.7 10*3/uL (1.3-4.4); MEAN CELL VOLUME 93.7 fl (80.0-94.0); MEAN CORPUSCULAR HGB 32.5 pg (27.0-31.0); MEAN CORPUSCULAR HGB CONC 34.7 g/dl (33.0-37.0); MEAN PLATELET VOLUME 9.4 fl (9.6-12.3); MONO # 0.5 10*3/uL (0.1-1.0); MONO % 5.1 % (3.0-9.0); NEUT % 76.2 % (47.0-73.0); PLATELET COUNT AUTOMATED 303 10*3/uL (130-400); RED BLOOD COUNT 4.58 10*6/uL (4.50-5.90); RED CELL DISTRI WIDTH 12.6 % (0-14.5); WHITE BLOOD COUNT 10.5 10*3/uL (4.8-10.8)
[2022-08-12 13:10] LABS: ALKALINE PHOSPHATASE 80 U/L (45-117); BUN 9 mg/dl (7-24); CHLORIDE 107 mmol/L (98-107); CREATININE 0.87 mg/dL (0.70-1.30); SGOT/AST 29 IU/L (3-35); SGPT/ALT 86 U/L (12-78); SODIUM 138 mmol/L (136-145); TOTAL PROTEIN 7.4 gm/dL (6.4-8.2)
[2022-08-12 13:13] LABS: ACT PARTIAL THROMBO TIME 42.1 SECONDS (20.0-32.1); INTERNATIONAL NORM RATIO 1.1 (2.0-3.5)
[2022-08-12] MEDS ORDERED: ZITHROMAX250 MG PO (14:21)
== END 2022-08-12 14:50 | disposition home or self-care (01) ==
LOC: ED 10:26
PROVIDERS: Family Medicine
DX: J18.9 Pneumonia, unspecified organism (principal); Z20.822 Contact with and (suspected) exposure to COVID-19; Z88.1 Allergy status to other antibiotic agents; Z79.899 Other long term (current) drug therapy; Z90.49 Acquired absence of other specified parts of digestive tract

== ENCOUNTER → 2022-12-06 | Outpatient (CLI) | payer OTHER ==
[~2022-12-06] MED LIST changes: +ZITHROMAX250 MG PO
== END | disposition home or self-care (01) ==
LOC: RAD 09:35
PROVIDERS: ATTEND Family Medicine
DX: J90 Pleural effusion, not elsewhere classified (principal)

== ENCOUNTER → 2023-02-02 | Outpatient (CLI) | payer OTHER ==
[~2023-02-02] MED LIST changes: +LIPITOR40 MG PO; +XARE20MG PO; +ZESTRIL40 MG PO
[2023-02-02 14:23] LABS: HEMATOCRIT 45.3 % (42.0-52.0); MEAN CELL VOLUME 92.4 fl (80.0-94.0); MEAN CORPUSCULAR HGB 32.7 pg (27.0-31.0); MEAN CORPUSCULAR HGB CONC 35.3 g/dl (33.0-37.0); MEAN PLATELET VOLUME 9.8 fl (9.6-12.3); RED BLOOD COUNT 4.9 10*6/uL (4.50-5.90); RED CELL DISTRI WIDTH 12.5 % (0-14.5); WHITE BLOOD COUNT 8.6 10*3/uL (4.8-10.8)
[2023-02-02 14:38] LABS: ALKALINE PHOSPHATASE 76 U/L (46-116); BUN 7 mg/dl (9-23); CHLORIDE 103 mmol/L (98-107); CHOLESTEROL 105 mg/dL (<200); CPK 89 U/L (34-171); LDL CHOLESTEROL 51 mg/dL (9-159); POTASSIUM 4.6 mmol/L (3.4-5.1); SGPT/ALT 36 U/L (10-49); TOTAL PROTEIN 6.8 gm/dL (6.0-8.0); TRIGLYCERIDES 144 mg/dl (<150)
[2023-02-07 07:05] LABS: TESTOSTERONE FREE, (DIRECT) 5.9 pg/mL (6.8-21.5)
== END | disposition home or self-care (01) ==
LOC: LAB 14:02
PROVIDERS: ATTEND Family Medicine
DX: I10 Essential (primary) hypertension (principal); K21.9 Gastro-esophageal reflux disease without esophagitis; E11.9 Type 2 diabetes mellitus without complications; N40.0 Benign prostatic hyperplasia without lower urinary tract symptoms; F41.1 Generalized anxiety disorder

== ENCOUNTER 2023-04-13 18:21 | Inpatient (IN) | payer SELFPAY ==
[2023-04-13] VITALS (7 sets, daily range): BP systolic 110–157; BP diastolic 74–106
[~2023-04-13] VITALS: Wt 112.0 kg
[2023-04-13 18:51] LABS: BASO # 0.1 10*3/uL (0.0-0.1); BASO % 1.2 % (0.0-1.0); EOS # 0.1 10*3/uL (0.0-0.4); EOS % 1.7 % (1.0-4.0); HEMATOCRIT 45.4 % (42.0-52.0); LYMPH # 1.5 10*3/uL (1.3-4.4); LYMPH % 23.3 % (27.0-41.0); MEAN CELL VOLUME 88.8 fl (80.0-94.0); MEAN CORPUSCULAR HGB 31.7 pg (27.0-31.0); MEAN CORPUSCULAR HGB CONC 35.7 g/dl (33.0-37.0); MEAN PLATELET VOLUME 10.1 fl (9.6-12.3); MONO # 0.5 10*3/uL (0.1-1.0); MONO % 6.8 % (3.0-9.0); NEUT # 4.4 10*3/uL (2.3-7.9); NEUT % 66.7 % (47.0-73.0); PLATELET COUNT AUTOMATED 233 10*3/uL (130-400); RED BLOOD COUNT 5.11 10*6/uL (4.50-5.90); RED CELL DISTRI WIDTH 12.3 % (0-14.5); WHITE BLOOD COUNT 6.6 10*3/uL (4.8-10.8)
[2023-04-13 19:01] LABS: ACT PARTIAL THROMBO TIME 31.1 SECONDS (20.0-32.1)
[2023-04-13 19:14] LABS: ALKALINE PHOSPHATASE 83 U/L (46-116); BUN 8 mg/dl (9-23); CHLORIDE 105 mmol/L (98-107); POTASSIUM 3.8 mmol/L (3.4-5.1); SGPT/ALT 34 U/L (10-49); TOTAL PROTEIN 6.8 gm/dL (6.0-8.0)
== END 2023-04-13 21:16 | disposition left against medical advice (07) | DRG 313 ==
LOC: ED 18:21 → EDHOLD 20:29 → 4E 21:01
PROVIDERS: Emergency Medicine; ADMIT Internal Medicine; ATTEND Internal Medicine
DX: R07.9 Chest pain, unspecified (principal); F33.9 Major depressive disorder, recurrent, unspecified; F41.9 Anxiety disorder, unspecified; I10 Essential (primary) hypertension; K59.09 Other constipation; Z53.29 Procedure and treatment not carried out because of patient's decision for other reasons; Z90.49 Acquired absence of other specified parts of digestive tract; Z88.1 Allergy status to other antibiotic agents; Z88.8 Allergy status to other drugs, medicaments and biological substances

== ENCOUNTER 2023-05-12 19:51 | Inpatient (IN) | payer OTHER ==
[~2023-05-12] VITALS: Ht 177.8 cm; Wt 125.3 kg
[2023-05-12 20:07] VITALS: BP 146/107
[2023-05-12 20:46] LABS: BASO # 0.1 10*3/uL (0.0-0.1); BASO % 1.2 % (0.0-1.0); EOS # 0.3 10*3/uL (0.0-0.4); EOS % 3.3 % (1.0-4.0); HEMATOCRIT 45.4 % (42.0-52.0); LYMPH % 24.2 % (27.0-41.0); MEAN CELL VOLUME 87.8 fl (80.0-94.0); MEAN CORPUSCULAR HGB 31.7 pg (27.0-31.0); MEAN CORPUSCULAR HGB CONC 36.1 g/dl (33.0-37.0); MEAN PLATELET VOLUME 10.1 fl (9.6-12.3); MONO # 0.6 10*3/uL (0.1-1.0); MONO % 7.4 % (3.0-9.0); NEUT # 5.2 10*3/uL (2.3-7.9); NEUT % 63.5 % (47.0-73.0); PLATELET COUNT AUTOMATED 247 10*3/uL (130-400); RED BLOOD COUNT 5.17 10*6/uL (4.50-5.90); RED CELL DISTRI WIDTH 12.5 % (0-14.5); WHITE BLOOD COUNT 8.2 10*3/uL (4.8-10.8)
[2023-05-12 21:08] LABS: ALKALINE PHOSPHATASE 85 U/L (46-116); BUN 8 mg/dl (9-23); CHLORIDE 106 mmol/L (98-107); LIPASE 31 U/L (12-53); POTASSIUM 3.8 mmol/L (3.4-5.1); SGPT/ALT 29 U/L (10-49); TOTAL PROTEIN 6.6 gm/dL (6.0-8.0)
[2023-05-12 21:10] LABS: ETHYL ALCOHOL < 3.0 mg/dl (<3)
[2023-05-12 23:28] VITALS: BP 135/89
[2023-05-13 05:28] VITALS: BP 135/92
[2023-05-13 07:18] LABS: BASO # 0.1 10*3/uL (0.0-0.1); BASO % 1.6 % (0.0-1.0); EOS # 0.3 10*3/uL (0.0-0.4); EOS % 4.5 % (1.0-4.0); HEMATOCRIT 46.5 % (42.0-52.0); LYMPH # 1.9 10*3/uL (1.3-4.4); MEAN CELL VOLUME 88.9 fl (80.0-94.0); MEAN CORPUSCULAR HGB 31.9 pg (27.0-31.0); MEAN CORPUSCULAR HGB CONC 35.9 g/dl (33.0-37.0); MEAN PLATELET VOLUME 10.2 fl (9.6-12.3); MONO # 0.6 10*3/uL (0.1-1.0); MONO % 8.8 % (3.0-9.0); NEUT # 3.9 10*3/uL (2.3-7.9); NEUT % 56.7 % (47.0-73.0); PLATELET COUNT AUTOMATED 222 10*3/uL (130-400); RED BLOOD COUNT 5.23 10*6/uL (4.50-5.90); RED CELL DISTRI WIDTH 12.9 % (0-14.5); WHITE BLOOD COUNT 6.9 10*3/uL (4.8-10.8)
[2023-05-13 07:51] LABS: BUN 7 mg/dl (9-23); CHLORIDE 106 mmol/L (98-107); POTASSIUM 4.1 mmol/L (3.4-5.1)
[2023-05-13 17:10] VITALS: BP 125/86
[2023-05-13] MEDS ORDERED: DAYVIGO10 MG PO (17:30)
[2023-05-13] MEDS ORDERED: METOPROLOL SUCC50 M1 PO (17:32)
[2023-05-13] MEDS ORDERED: DIGOXIN250 MCG PO (17:33)
[2023-05-13] MEDS ORDERED: ENTRESTO 49 MG1 EACH PO (17:34)
[2023-05-13] MEDS ORDERED: ARIPIPRAZOLE15 MG PO (17:35)
[2023-05-13] MEDS ORDERED: ALDACTONE25 MG PO (17:37)
[2023-05-13] MEDS ORDERED: DULOXETINE HCL60 MG PO (17:37)
[2023-05-13] MEDS ORDERED: FUROSEMIDE40 MG PO (17:37)
[2023-05-13] MEDS ORDERED: JARDIANCE10 MG PO (17:38)
[2023-05-13 20:00] VITALS: BP 125/80
[2023-05-14] VITALS: BP 132/78
[2023-05-14] MEDS ORDERED: ALDACTONE25 M1 PO (04:25)
[2023-05-14] MEDS ORDERED: XARELTO20 M1 PO (04:27)
[2023-05-14 08:00] VITALS: BP 132/78
[2023-05-14 12:00] VITALS: BP 122/78
[2023-05-14 16:00] VITALS: BP 138/82
[2023-05-14 20:00] VITALS: BP 118/70
[2023-05-15] VITALS: BP 134/80
[2023-05-15 06:54] LABS: BASO # 0.2 10*3/uL (0.0-0.1); BASO % 1.8 % (0.0-1.0); EOS # 0.2 10*3/uL (0.0-0.4); EOS % 2.6 % (1.0-4.0); HEMATOCRIT 47.2 % (42.0-52.0); LYMPH # 2.3 10*3/uL (1.3-4.4); LYMPH % 27.8 % (27.0-41.0); MEAN CELL VOLUME 90.8 fl (80.0-94.0); MEAN CORPUSCULAR HGB 32.9 pg (27.0-31.0); MEAN CORPUSCULAR HGB CONC 36.2 g/dl (33.0-37.0); MEAN PLATELET VOLUME 10.2 fl (9.6-12.3); MONO # 0.7 10*3/uL (0.1-1.0); MONO % 8.1 % (3.0-9.0); NEUT % 59.2 % (47.0-73.0); PLATELET COUNT AUTOMATED 253 10*3/uL (130-400); WHITE BLOOD COUNT 8.4 10*3/uL (4.8-10.8)
[2023-05-15 07:40] LABS: BUN 8 mg/dl (9-23); CHLORIDE 104 mmol/L (98-107); POTASSIUM 4.2 mmol/L (3.4-5.1)
[2023-05-15 08:00] VITALS: BP 126/90
[2023-05-15 12:00] VITALS: BP 135/78
[2023-05-15 16:00] VITALS: BP 141/77
== END 2023-05-15 18:59 | disposition home or self-care (01) | DRG 312 ==
LOC: ED 19:51 → EDHOLD 22:35 → 5E 22:35
PROVIDERS: Emergency Medicine; ADMIT Internal Medicine; ATTEND Internal Medicine
DX: R55 Syncope and collapse (principal); I26.99 Other pulmonary embolism without acute cor pulmonale; J18.9 Pneumonia, unspecified organism; I50.22 Chronic systolic (congestive) heart failure; F33.1 Major depressive disorder, recurrent, moderate; I48.21 Permanent atrial fibrillation; I42.8 Other cardiomyopathies; G25.81 Restless legs syndrome; E11.9 Type 2 diabetes mellitus without complications; I48.0 Paroxysmal atrial fibrillation; E78.2 Mixed hyperlipidemia; I11.0 Hypertensive heart disease with heart failure; Z20.822 Contact with and (suspected) exposure to COVID-19; Z53.21 Procedure and treatment not carried out due to patient leaving prior to being seen by health care provider; I95.9 Hypotension, unspecified; E66.9 Obesity, unspecified; G47.33 Obstructive sleep apnea (adult) (pediatric); F41.1 Generalized anxiety disorder; I44.7 Left bundle-branch block, unspecified; Z88.1 Allergy status to other antibiotic agents; Z88.0 Allergy status to penicillin

== ENCOUNTER 2023-06-10 14:54 | Inpatient (IN) | payer OTHER ==
[~2023-06-10] VITALS: Ht 177.8 cm; Wt 113.1 kg
[~2023-06-10 14:54] MED LIST changes: +ALDACTONE25 M1 PO; +ALDACTONE25 MG PO; +ARIPIPRAZOLE15 MG PO; +DIGOXIN250 MCG PO; +DULOXETINE HCL60 MG PO; +ENTRESTO 49 MG1 EACH PO; +FUROSEMIDE40 MG PO; +JARDIANCE10 MG PO; +METOPROLOL SUCC50 M1 PO; +XARELTO20 M1 PO
[2023-06-10 15:09] VITALS: BP 142/102
[2023-06-10 15:47] LABS: BASO # 0.1 10*3/uL (0.0-0.1); BASO % 1.2 % (0.0-1.0); EOS # 0.1 10*3/uL (0.0-0.4); EOS % 1.5 % (1.0-4.0); HEMATOCRIT 44.7 % (42.0-52.0); LYMPH # 1.7 10*3/uL (1.3-4.4); LYMPH % 25.6 % (27.0-41.0); MEAN CELL VOLUME 89.6 fl (80.0-94.0); MEAN CORPUSCULAR HGB 32.1 pg (27.0-31.0); MEAN CORPUSCULAR HGB CONC 35.8 g/dl (33.0-37.0); MEAN PLATELET VOLUME 9.9 fl (9.6-12.3); MONO # 0.5 10*3/uL (0.1-1.0); MONO % 7.2 % (3.0-9.0); NEUT # 4.2 10*3/uL (2.3-7.9); NEUT % 64.3 % (47.0-73.0); PLATELET COUNT AUTOMATED 234 10*3/uL (130-400); RED BLOOD COUNT 4.99 10*6/uL (4.50-5.90); RED CELL DISTRI WIDTH 12.5 % (0-14.5); WHITE BLOOD COUNT 6.5 10*3/uL (4.8-10.8)
[2023-06-10 15:50] LABS: ACT PARTIAL THROMBO TIME 31.9 SECONDS (20.0-32.1)
[2023-06-10 16:03] LABS: ALKALINE PHOSPHATASE 87 U/L (46-116); BUN 9 mg/dl (9-23); CHLORIDE 106 mmol/L (98-107); LIPASE 33 U/L (12-53); SGPT/ALT 34 U/L (10-49); TOTAL PROTEIN 6.7 gm/dL (6.0-8.0)
[2023-06-10 16:08] VITALS: BP 122/86
[2023-06-10 19:08] VITALS: BP 131/83
[2023-06-10 20:00] VITALS: BP 146/96
[2023-06-10 23:13] VITALS: BP 136/97
[2023-06-11 00:25] VITALS: BP 146/96
[2023-06-11 07:19] LABS: FREE T4 0.85 ng/dl (0.89-1.76)
[2023-06-11 08:00] VITALS: BP 144/105
[2023-06-11 09:58] VITALS: BP 141/97
[2023-06-11 12:00] VITALS: BP 147/98
[2023-06-11 16:00] VITALS: BP 147/102
== END 2023-06-11 20:18 | disposition home or self-care (01) | DRG 311 ==
LOC: ED 14:54 → 4E 17:04 → EDHOLD 17:04 → 4E 23:05
PROVIDERS: Emergency Medicine; ADMIT Internal Medicine; ATTEND Internal Medicine
DX: I20.8 Other forms of angina pectoris (principal); I42.8 Other cardiomyopathies; I50.9 Heart failure, unspecified; I44.7 Left bundle-branch block, unspecified; I48.0 Paroxysmal atrial fibrillation; E66.9 Obesity, unspecified; E66.09 Other obesity due to excess calories; G47.33 Obstructive sleep apnea (adult) (pediatric); I11.0 Hypertensive heart disease with heart failure; F41.1 Generalized anxiety disorder; Z88.1 Allergy status to other antibiotic agents; Z88.8 Allergy status to other drugs, medicaments and biological substances

== ENCOUNTER 2023-07-05 17:27 | Inpatient (IN) | payer OTHER ==
[~2023-07-05] VITALS: Ht 177.8 cm; Wt 105.7 kg
[2023-07-05 17:47] VITALS: BP 90/69
[2023-07-05 18:17] LABS: BASO # 0.1 10*3/uL (0.0-0.1); BASO % 1.2 % (0.0-1.0); EOS # 0.2 10*3/uL (0.0-0.4); EOS % 1.8 % (1.0-4.0); LYMPH # 1.8 10*3/uL (1.3-4.4); LYMPH % 20.4 % (27.0-41.0); MEAN CELL VOLUME 89.7 fl (80.0-94.0); MEAN CORPUSCULAR HGB 32.1 pg (27.0-31.0); MEAN CORPUSCULAR HGB CONC 35.7 g/dl (33.0-37.0); MEAN PLATELET VOLUME 9.8 fl (9.6-12.3); MONO # 0.5 10*3/uL (0.1-1.0); MONO % 5.3 % (3.0-9.0); NEUT # 6.1 10*3/uL (2.3-7.9); NEUT % 70.8 % (47.0-73.0); PLATELET COUNT AUTOMATED 304 10*3/uL (130-400); RED BLOOD COUNT 6.02 10*6/uL (4.50-5.90); RED CELL DISTRI WIDTH 12.7 % (0-14.5); WHITE BLOOD COUNT 8.7 10*3/uL (4.8-10.8)
[2023-07-05 18:29] LABS: ACT PARTIAL THROMBO TIME 36.5 SECONDS (20.0-32.1)
[2023-07-05 18:37] LABS: LIPASE 70 U/L (12-53)
[2023-07-05 18:40] LABS: ALKALINE PHOSPHATASE 108 U/L (46-116); BUN 9 mg/dl (9-23); CHLORIDE 104 mmol/L (98-107); POTASSIUM 4.7 mmol/L (3.4-5.1); SGPT/ALT 43 U/L (10-49); TOTAL PROTEIN 8.2 gm/dL (6.0-8.0)
[2023-07-05] MEDS ORDERED: ELIQUIS5 M1 PO (18:57)
[2023-07-05 18:58] VITALS: BP 99/58
[2023-07-05 19:40] VITALS: BP 95/57
[2023-07-05 20:26] VITALS: BP 102/66
[2023-07-05 22:08] VITALS: BP 103/76
[2023-07-05 22:49] VITALS: BP 102/60
[2023-07-06] VITALS (8 sets, daily range): BP systolic 99–172; BP diastolic 57–90
[2023-07-06 06:08] LABS: BUN 10 mg/dl (9-23); CHLORIDE 105 mmol/L (98-107)
[2023-07-06 06:33] LABS: BASO # 0.1 10*3/uL (0.0-0.1); BASO % 1.2 % (0.0-1.0); EOS # 0.1 10*3/uL (0.0-0.4); EOS % 1.6 % (1.0-4.0); HEMATOCRIT 51.3 % (42.0-52.0); LYMPH # 2.1 10*3/uL (1.3-4.4); LYMPH % 25.5 % (27.0-41.0); MEAN CELL VOLUME 91.8 fl (80.0-94.0); MEAN CORPUSCULAR HGB 32.4 pg (27.0-31.0); MEAN CORPUSCULAR HGB CONC 35.3 g/dl (33.0-37.0); MEAN PLATELET VOLUME 10.1 fl (9.6-12.3); MONO # 0.7 10*3/uL (0.1-1.0); MONO % 8.7 % (3.0-9.0); NEUT # 5.1 10*3/uL (2.3-7.9); NEUT % 62.5 % (47.0-73.0); PLATELET COUNT AUTOMATED 252 10*3/uL (130-400); RED BLOOD COUNT 5.59 10*6/uL (4.50-5.90); RED CELL DISTRI WIDTH 13.2 % (0-14.5); WHITE BLOOD COUNT 8.2 10*3/uL (4.8-10.8)
[2023-07-07] VITALS: BP 112/74
[2023-07-07 04:00] VITALS: BP 128/84
[2023-07-07 08:00] VITALS: BP 98/61
[2023-07-07 10:46] LABS: BILIRUBIN Negative (Negative); BLOOD Negative (Negative); CLARITY Clear (Clear); COLOR Yellow (Yellow); GLUCOSE 3+ (Negative); KETONE 1+ (Negative); LEUKO ESTERASE Negative (Negative); NITRITE Negative (Negative); SPECIFIC GRAVITY >= 1.030 (1.001-1.030); UROBILINOGEN 0.2 E.U./dl (0.0-1.0)
[2023-07-07 10:58] LABS: BACTERIA 1+; MUCOUS 1+
[2023-07-07 12:00] VITALS: BP 116/68
[2023-07-07 16:00] VITALS: BP 111/75
[2023-07-07 20:00] VITALS: BP 113/77
[2023-07-08 00:10] VITALS: BP 113/76
[2023-07-08 04:05] VITALS: BP 107/71
[2023-07-08 08:00] VITALS: BP 117/83
[2023-07-08 12:00] VITALS: BP 105/72
[2023-07-08 16:00] VITALS: BP 107/75
[2023-07-08] MEDS ORDERED: METOPROLOL SUCC50 M2 PO (16:23)
[2023-07-08] MEDS ORDERED: DAYVIGO10 MG PO (17:09)
== END 2023-07-08 17:45 | disposition home or self-care (01) | DRG 280 ==
LOC: ED 17:27 → EDHOLD 22:14 → ICCU 22:14
PROVIDERS: Emergency Medicine; Internal Medicine Nephrology; ADMIT Internal Medicine; ATTEND Internal Medicine
DX: I21.4 Non-ST elevation (NSTEMI) myocardial infarction (principal); N17.0 Acute kidney failure with tubular necrosis; I42.8 Other cardiomyopathies; E87.20 Acidosis, unspecified; F33.9 Major depressive disorder, recurrent, unspecified; I50.22 Chronic systolic (congestive) heart failure; K59.09 Other constipation; I48.0 Paroxysmal atrial fibrillation; E86.0 Dehydration; E80.6 Other disorders of bilirubin metabolism; E11.65 Type 2 diabetes mellitus with hyperglycemia; G25.81 Restless legs syndrome; F41.1 Generalized anxiety disorder; E66.9 Obesity, unspecified; I11.0 Hypertensive heart disease with heart failure; I95.9 Hypotension, unspecified; Z88.1 Allergy status to other antibiotic agents; Z88.8 Allergy status to other drugs, medicaments and biological substances; Z90.49 Acquired absence of other specified parts of digestive tract; Z68.33 Body mass index [BMI] 33.0-33.9, adult

== ENCOUNTER 2023-12-12 10:23 | Inpatient (IN) | payer OTHER ==
[2023-12-12] VITALS (13 sets, daily range): BP systolic 111–138; BP diastolic 50–97
[~2023-12-12] VITALS: Ht 177.8 cm; Wt 111.1 kg
[~2023-12-12 10:23] MED LIST changes: +ELIQUIS5 M1 PO; +METOPROLOL SUCC50 M2 PO
[2023-12-12 10:47] LABS: BASO # 0.1 10*3/uL (0.0-0.1); BASO % 1.5 % (0.0-1.0); EOS # 0.1 10*3/uL (0.0-0.4); EOS % 0.9 % (1.0-4.0); HEMATOCRIT 46.2 % (42.0-52.0); LYMPH # 2.1 10*3/uL (1.3-4.4); LYMPH % 23.4 % (27.0-41.0); MEAN CELL VOLUME 91.3 fl (80.0-94.0); MEAN CORPUSCULAR HGB 31.6 pg (27.0-31.0); MEAN CORPUSCULAR HGB CONC 34.6 g/dl (33.0-37.0); MEAN PLATELET VOLUME 10.4 fl (9.6-12.3); MONO # 0.7 10*3/uL (0.1-1.0); MONO % 7.6 % (3.0-9.0); NEUT % 65.7 % (47.0-73.0); PLATELET COUNT AUTOMATED 272 10*3/uL (130-400); RED BLOOD COUNT 5.06 10*6/uL (4.50-5.90); RED CELL DISTRI WIDTH 13.3 % (0-14.5); WHITE BLOOD COUNT 9.1 10*3/uL (4.8-10.8)
[2023-12-12 10:58] LABS: ACT PARTIAL THROMBO TIME 32.5 SECONDS (20.0-32.1)
[2023-12-12 11:12] LABS: ALKALINE PHOSPHATASE 95 U/L (46-116); BUN 13 mg/dl (9-23); CHLORIDE 109 mmol/L (98-107); LIPASE 30 U/L (12-53); POTASSIUM 3.9 mmol/L (3.4-5.1); SGPT/ALT 43 U/L (5-49); TOTAL PROTEIN 6.8 gm/dL (6.0-8.0)
[2023-12-12] MEDS ORDERED: LOPRESSOR100 M1 PO (16:15)
[2023-12-12] MEDS ORDERED: TOPROL XL100 MG PO (16:22)
[2023-12-13] VITALS (8 sets, daily range): BP systolic 108–128; BP diastolic 70–88
== END 2023-12-13 14:22 | disposition home or self-care (01) | DRG 194 ==
LOC: ED 10:23 → EDHOLD 13:42
PROVIDERS: Emergency Medicine; ADMIT Internal Medicine; ATTEND Internal Medicine
DX: J18.9 Pneumonia, unspecified organism (principal); E87.20 Acidosis, unspecified; I50.22 Chronic systolic (congestive) heart failure; I48.21 Permanent atrial fibrillation; I42.8 Other cardiomyopathies; F41.1 Generalized anxiety disorder; F31.9 Bipolar disorder, unspecified; I25.10 Atherosclerotic heart disease of native coronary artery without angina pectoris; I48.0 Paroxysmal atrial fibrillation; I11.0 Hypertensive heart disease with heart failure; I50.810 Right heart failure, unspecified; E66.9 Obesity, unspecified; Z71.3 Dietary counseling and surveillance; Z88.1 Allergy status to other antibiotic agents; Z88.8 Allergy status to other drugs, medicaments and biological substances; Z90.49 Acquired absence of other specified parts of digestive tract; Z79.82 Long term (current) use of aspirin; Z79.899 Other long term (current) drug therapy